=== PATIENT | female | born 1945 | race Caucasian/White ===

== ENCOUNTER 2017-10-06 15:40 | Emergency (ER) | payer OTHER ==
[~2017-10-06] VITALS: Ht 152.4 cm; Wt 65.8 kg
[2017-10-06] MEDS ORDERED: LIORESAL 10 MG10 MG PO (15:58)
[2017-10-06] MEDS ORDERED: B-12500 MCG PO (15:58)
[2017-10-06] MEDS ORDERED: ASPIR 8181 MG PO (15:58)
[2017-10-06] MEDS ORDERED: NOVOLIN N100 UNIT/3 SUBQ (15:59)
[2017-10-06] MEDS ORDERED: FLONASE 0.05%50 MCG NASAL (15:59)
[2017-10-06] MEDS ORDERED: AMARYL2 MG PO (15:59)
[2017-10-06] MEDS ORDERED: NEURONTIN 300300 M1 PO (15:59)
[2017-10-06] MEDS ORDERED: FISH OIL 1,001000 M2 PO (15:59)
[2017-10-06] MEDS ORDERED: GLUCOPHAGE XR500 MG PO (16:00)
[2017-10-06] MEDS ORDERED: TOPROL XL50 MG PO (16:00)
[2017-10-06] MEDS ORDERED: PROBIOTIC1 EAC1 PO (16:01)
[2017-10-06] MEDS ORDERED: MAXZIDE-25 MG1 EACH PO (16:01)
[2017-10-06] MEDS ORDERED: OMEPRAZOLE40 MG PO (16:01)
[2017-10-06] MEDS ORDERED: PREDNISONE 5 MG5 M1 PO (16:01)
[2017-10-06] MEDS ORDERED: PERCOCET PO (16:01)
[2017-10-06] MEDS ORDERED: ULTRAM 50MG TAB50 MG PO (16:01)
[2017-10-06] MEDS ORDERED: TUMS PO (16:02)
[2017-10-06] MEDS ORDERED: APAP650 PO (16:02)
[2017-10-06] MEDS ORDERED: DIOVAN HCT 80-1 EACH PO (16:02)
[2017-10-06] MEDS ORDERED: VITAMIN D3400 UNIT PO (16:02)
[2017-10-06 16:41] LABS: HEMATOCRIT 33.2 % (37.0-47.0); HEMOGLOBIN 11.5 gm/dL (12.0-15.0); MCH 35.9 pg (26.0-34.0); MCHC 34.7 g/dL (28.0-37.0); MCV 103.5 fL (80.0-100.0); NUCLEATED RBCS 0 /100WBC; PLATELET COUNT* 251 thou/uL (150-400); RDW-CV 13.8 % (10.5-14.5); WBC 10.5 thou/uL (4.0-11.0)
[2017-10-06 16:46] LABS: CALCIUM 8.8 mg/dL (8.5-10.1); CREATININE 1.3 mg/dL (0.6-1.3)
[2017-10-06 16:51] LABS: ALBUMIN 3.5 g/dL (3.4-5.0); TOTAL BILIRUBIN 0.4 mg/dL (<0.1-1.0); TOTAL PROTEIN 6.6 g/dL (6.4-8.2)
[2017-10-06] MEDS ORDERED: CLEOCIN HCL150 MG PO (17:32)
[2017-10-06 17:41] LABS: ABSOLUTE LYMPHOCYTES 0.9 thou/uL (0.8-5.3); ABSOLUTE MONOCYTES 0.4 thou/uL (0.0-1.2); ABSOLUTE NEUTROPHILS 9.1 thou/uL (1.6-8.1); PLATELET ESTIMATE ADEQUATE
[2017-10-06 17:45] VITALS: BP 189/77
== END 2017-10-06 17:45 | disposition home or self-care (01) ==
LOC: M.ERS 15:40
PROVIDERS: Nurse Practitioner Psychiatric/Mental Health
DX: S81.801A Unspecified open wound, right lower leg, initial encounter (principal); E11.22 Type 2 diabetes mellitus with diabetic chronic kidney disease; E11.65 Type 2 diabetes mellitus with hyperglycemia; G89.29 Other chronic pain; M54.5 Low back pain; I12.9 Hypertensive chronic kidney disease with stage 1 through stage 4 chronic kidney disease, or unspecified chronic kidney disease; N18.3 Chronic kidney disease, stage 3 (moderate); E78.00 Pure hypercholesterolemia, unspecified; Z79.4 Long term (current) use of insulin; Z90.710 Acquired absence of both cervix and uterus; Z88.1 Allergy status to other antibiotic agents; Z88.0 Allergy status to penicillin; Z88.8 Allergy status to other drugs, medicaments and biological substances; X58.XXXA Exposure to other specified factors, initial encounter; Y93.89 Activity, other specified; Y92.89 Other specified places as the place of occurrence of the external cause; Y99.8 Other external cause status